=== PATIENT | female | born 1970 | race Caucasian/White ===

== ENCOUNTER 2016-08-21 17:52 | Inpatient (IN) | payer OTHER ==
[~2016-08-21] VITALS: Ht 157.5 cm; Wt 65.9 kg
[~2016-08-21 17:52] MED LIST: DEPRESSION MED; LORA-474 PO
[2016-08-21 17:53] VITALS: BP 174/83; PULSE 126; RESP 24; RESP 25; TEMP 101.1; O2SAT 99
[2016-08-21 20:45] VITALS: RESP 16; O2SAT 98
[2016-08-21] MEDS ORDERED: NORC5TAB PO (20:48)
[2016-08-21] MEDS ORDERED: BACT400T PO (20:48)
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
[2016-08-21 20:58] VITALS: BP 130/85; PULSE 110; RESP 16; O2SAT 98
[2016-08-21 21:12] LABS: AUTOMATED NEUTROPHIL # 6.7 TH/MM3 (1.8-7.7); BASOPHIL % 0.2 % (0.0-2.0); EOSINOPHIL # 0.1 TH/MM3 (0-0.4); EOSINOPHIL % 1.5 % (0.0-4.0); HEMATOCRIT 35.1 % (35.0-46.0); HEMO FLAGS DIFF FINAL; LYMPH % 14.9 % (9.0-44.0); LYMPHOCYTE # 1.3 TH/MM3 (1.0-4.8); MEAN CELL VOLUME 90.6 FL (80.0-100.0); MEAN CORPUSCULAR HGB CONC 34.2 % (32.0-36.0); MONO % 8.5 % (0.0-8.0); NEUT % 74.9 % (16.0-70.0); PLATELET COUNT 204 TH/MM3 (150-450); RED BLOOD COUNT 3.88 MIL/MM3 (4.00-5.30); RED CELL DISTRIBUTION WIDTH 13.4 % (11.6-17.2); WHITE BLOOD COUNT 8.9 TH/MM3 (4.0-11.0)
[2016-08-21] MEDS ORDERED: VANCOMYCIN INJ 1,000 MG in SODIUM CHLOR 0.9% 250 ML INJ 250 ML IV ONE (21:15)
[2016-08-21] MEDS ORDERED: ONDANSETRON HCL 4 MG/2 ML VIAL IV ONE ×2 (21:15→23:00)
[2016-08-21] MEDS ORDERED: PIPERACIL-TAZO 3.375 GM PREMIX 50 ML IV ONE (21:15)
[2016-08-21] MEDS ORDERED: SODIUM CHLOR 0.9% 1000 ML INJ 1,000 ML IV ONE ×2 (21:15→22:15)
--- NOTE | 2016-08-21 21:18 | RADRPT ---
EXAM DATE/TIME: 08/21/2016 21:00 [facility] COMPARISON: No previous studies available for comparison. INDICATIONS : Fever. MEDICAL HISTORY : None. SURGICAL HISTORY : None. ENCOUNTER: Initial ACUITY: 1 day PAIN SCORE: 7/10 LOCATION: Bilateral chest FINDINGS: There is a surgical drain overlying the left axillary region. Lungs are focally clear. No pleural eff usion is noted. Cardiac contours are satisfactory. CONCLUSION: No acute disease. Lobo Brown MD on August 21, 2016 at 21:15 Board Certified Radiologist. This report was verified electronically.
[2016-08-21 21:25] LABS: APTT (PATIENT) 25.6 SEC (24.3-30.1); INTERNATIONAL NORMALIZED RATIO 0.9 RATIO; PROTHROMBIN TIME - PATIENT 9.8 SEC (9.8-11.6)
[2016-08-21 21:43] LABS: ANION GAP 6 MEQ/L (5-15); AST (GOT) 24 U/L (15-37); BICARBONATE 28.8 MEQ/L (21.0-32.0); BLOOD UREA NITROGEN 9 MG/DL (7-18); CHLORIDE 103 MEQ/L (98-107); GLOMERULAR FILTRATION RATE 80 ML/MIN (>89); MAGNESIUM 2.2 MG/DL (1.5-2.5); POTASSIUM 3.9 MEQ/L (3.5-5.1); SODIUM (NA) 138 MEQ/L (136-145)
[2016-08-21 21:46] LABS: ALKALINE PHOSPHATASE 92 U/L (45-117); ALT (GPT) 40 U/L (10-53); TOTAL BILIRUBIN ADULT 0.2 MG/DL (0.2-1.0)
[2016-08-21 22:08] LABS: BLOOD, URINE NEG (NEG); GLUCOSE,URINE NEG (NEG); KETONE, URINE NEG (NEG); NITRITE,URINE NEG (NEG); SQUAMOUS EPITHELIAL CELL URINE 1 /hpf (0-5); URINE COLOR LIGHT-YELLOW (YELLW/STRAW)
[2016-08-21 22:10] LABS: COMMENT (UR) CULT NOT INDICATED; CULTURE IF INDICATED CULT NOT INDICATED
[2016-08-21] MEDS ORDERED: HYDROmorphone HCL PF 1 MG/ML VIAL IV PUSH ONE (23:00)
[2016-08-21] MEDS ORDERED: SODIUM CHLORIDE 0.9% FLUSH 10 ML FLUSH IV FLUSH PRN (23:15)
[2016-08-21] MEDS ORDERED: NALOXONE HCL 0.4 MG/ML AMP IV PRN (23:15)
[2016-08-21] MEDS ORDERED: Vancomycin Consult Pharmacy 1 EA OTHER SCH (23:30)
--- NOTE | 2016-08-21 23:34 | RADRPT ---
EXAM DATE/TIME: 08/21/2016 23:06 [facility] COMPARISON: No previous studies available for comparison. INDICATIONS : Left arm pain s/p lymphadenectomy. MEDICAL HISTORY : Renal calculi. . Depression. Anxiety. Arthritis. SURGICAL HISTORY : Tubal ligation. Cholecystectomy. Nephrolithotomy. Lithotripsy. Left adnexa lymphadenectomy. ENCOUNTER: Initial ACUITY: 4 - 6 days PAIN SCORE: 10/10 LOCATION: Left arm. FINDINGS: There is spontaneous flow documented in the brachial, basilic, cephalic, axillary, and subclavian vei ns. The vessels are compressible and augmentation response is documented. No filling defects are se en. The flow is phasic with respiration. Direction of flow in the jugular vein is caudal. CONCLUSION: Normal examination. Andre Lopez Jr., MD on August 21, 2016 at 23:31 Board Certified Radiologist. This report was verified electronically.
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
[2016-08-22] MEDS ORDERED: VANCOMYCIN 500 MG/NS 100 ML IV ONE ×2 (00:15)
[2016-08-22 00:45] VITALS: BP 135/76; PULSE 108; RESP 17; TEMP 99.2; O2SAT 100
[2016-08-22] MEDS: PIPERACIL-TAZO 4.5 GM PREMIX 100 ML IV SCH ×4 (04:30→22:18)
[2016-08-22] MEDS: LORazepam 1 MG TAB PO PRN ×2 (04:34→13:17)
[2016-08-22] MEDS: ACETAMINOPHEN/HYDROcodone 325 MG/5 MG TAB PO PRN ×3 (04:35→12:49)
[2016-08-22 05:16] VITALS: BP 121/73; PULSE 102; RESP 16; TEMP 99.2; O2SAT 94
[2016-08-22 08:23] LABS: AUTOMATED NEUTROPHIL # 5.6 TH/MM3 (1.8-7.7); BASOPHIL % 0.1 % (0.0-2.0); EOSINOPHIL # 0.1 TH/MM3 (0-0.4); HEMATOCRIT 37.8 % (35.0-46.0); HEMO FLAGS DIFF FINAL; LYMPHOCYTE # 1.1 TH/MM3 (1.0-4.8); MEAN CELL VOLUME 92.5 FL (80.0-100.0); MEAN CORPUSCULAR HEMOGLOBIN 30.5 PG (27.0-34.0); MONO % 7.9 % (0.0-8.0); PLATELET COUNT 183 TH/MM3 (150-450); RED BLOOD COUNT 4.09 MIL/MM3 (4.00-5.30); RED CELL DISTRIBUTION WIDTH 13.7 % (11.6-17.2); WHITE BLOOD COUNT 7.5 TH/MM3 (4.0-11.0)
[2016-08-22 08:38] LABS: BICARBONATE 26.2 MEQ/L (21.0-32.0); POTASSIUM 3.8 MEQ/L (3.5-5.1)
[2016-08-22 09:02] VITALS: BP 127/74; PULSE 133; RESP 20; TEMP 102.2; O2SAT 95
[2016-08-22] MEDS: VANCOMYCIN INJ 1,250 MG in SODIUM CHLOR 0.9% 250 ML INJ 250 ML IV SCH ×2 (09:16→20:46)
[2016-08-22] MEDS: SODIUM CHLORIDE 0.9% FLUSH 10 ML FLUSH IV FLUSH SCH ×2 (09:16→20:51)
[2016-08-22 12:39] VITALS: BP 135/74; PULSE 111; RESP 19; TEMP 99.9; O2SAT 95
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
[2016-08-22] MEDS: MORPHINE SULFATE 4 MG/ML INJ IV PUSH PRN ×2 (13:16→18:34)
[2016-08-22] MEDS ORDERED: DIATRIZOATE MEGLUM/DIATRIZOATE SOD 9 ML CUP PO ONE (13:45)
--- NOTE | 2016-08-22 16:34 | RADRPT ---
EXAM DATE/TIME: 08/22/2016 15:48 [facility] COMPARISON: CT ABDOMEN & PELVIS W/O CONTRAST, November 04, 2015, 3:10. INDICATIONS : Right upper quadrant pain ORAL CONTRAST: No oral contrast ingested. RADIATION DOSE: 9.02 CTDIvol (mGy) MEDICAL HISTORY : None SURGICAL HISTORY : Cholecystectomy. Tubal ligation. Lymph node removal. Percutaneous nephro lithotomy. Lithotripsy. ENCOUNTER: Initial ACUITY: 1 day PAIN SCALE: 10/10 LOCATION: Right upper quadrant TECHNIQUE: Volumetric scanning of the abdomen and pelvis was performed. Using automated exposure control and adjustment of the mA and/or kV according to patient size, radiation dose was kept as low as reasonably achievable to obtain optimal diagnostic quality images. FINDINGS: Patchy air-space disease is seen in the lung base on the right, progressed in the inter brittany. There is marked fatty replacement to the liver. Spleen, pancreas, and adrenals are unremarkable. The re are renal stones identified in the left kidney without obstruction. The right kidney is unremarka ble. The gallbladder is surgically absent. There is no intrahepatic biliary ductal dilatation. Region of the cecum and terminal ileum are unremarkable. Pelvic contents are otherwise unremarkable. CONCLUSION: 1. Patchy air-space disease in the right lung base. 2. Marked fatty replacement to the liver. 3. Negative for free air or obstruction. 4. Nonobstructing left renal stones. Douglas Cook MD FACR on August 22, 2016 at 16:06 Board Certified Radiologist. This report was verified electronically.
[2016-08-22] MEDS: ACETAMINOPHEN/HYDROcodone 325 MG/10 MG TAB PO PRN ×2 (16:46→20:51)
--- NOTE | 2016-08-22 16:58 | RADRPT ---
EXAM DATE/TIME: 08/22/2016 16:01 [facility] COMPARISON: No previous studies available for comparison. INDICATIONS : Left axilla undrained abscess. MEDICAL HISTORY : Renal calculi. Arthritis. UTI. Anxiety. Depression. Left arm numbness post axilla surgery. SURGICAL HISTORY : Cholecystectomy. Tubal ligation. Axilla surgery. Left percutaneous nephrolithotomy. Lithotripsy x4. Laser 4-5x. Nephrectomy. Lymph node removal. ENCOUNTER: Initial ACUITY: 4-6 days PAIN SCORE: 10/10 LOCATION: Left arm. AREA EVALUATED: Left axilla. FINDINGS: MASSES: None. FLUID COLLECTIONS: None. OTHER: The left axillary tissues appear edematous and indurated. CONCLUSION: Soft tissue swelling without evidence of discrete abscess. Phuc Duggan MD on August 22, 2016 at 16:55 Board Certified Radiologist. This report was verified electronically.
[2016-08-22 17:09] VITALS: BP 133/81; PULSE 115; RESP 20; TEMP 99.9; O2SAT 94
[2016-08-22 20:00] VITALS: BP 101/70; PULSE 94; RESP 20; TEMP 97.3; O2SAT 94
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
[2016-08-23] VITALS (10 sets, daily range): BP systolic 100–171; BP diastolic 58–91; PULSE 83–140; RESP 16–28; TEMP 97.9–100.3; O2SAT 90–99
[2016-08-23] MEDS: MORPHINE SULFATE 4 MG/ML INJ IV PUSH PRN ×3 (03:27→17:02)
[2016-08-23] MEDS: PIPERACIL-TAZO 4.5 GM PREMIX 100 ML IV SCH ×4 (03:32→21:52)
[2016-08-23] MEDS: LORazepam 1 MG TAB PO PRN ×2 (03:35→20:37)
[2016-08-23] MEDS ORDERED: ACETAMINOPHEN 325 MG TAB PO PRN (04:15)
[2016-08-23] MEDS ORDERED: LORazepam 2 MG/ML VIAL IV PUSH ONE ×2 (04:30→05:30)
[2016-08-23] MEDS ORDERED: IOHEXOL 350 MG/ML 10 ML VIAL (for RAD DIAG) IV ONE (06:15)
--- NOTE | 2016-08-23 06:26 | RADRPT ---
EXAM DATE/TIME: 08/23/2016 06:00 [facility] COMPARISON: No previous studies available for comparison. INDICATIONS : Shortness of breath. Evaluate for embolism. IV CONTRAST: 73 cc Omnipaque 350 (iohexol) IV RADIATION DOSE: 23.05 CTDIvol (mGy) MEDICAL HISTORY : None SURGICAL HISTORY : None. ENCOUNTER: Initial ACUITY: 1 day PAIN SCALE: 0/10 LOCATION: Bilateral chest TECHNIQUE: Volumetric scanning of the chest was performed using a pulmonary embolism protocol MIP images were re constructed. Using automated exposure control and adjustment of the mA and/or kV according to patien t size, radiation dose was kept as low as reasonably achievable to obtain optimal diagnostic quality images. FINDINGS: PULMONARY ARTERIES: No filling defects are seen in the pulmonary arteries through the segmental level. LUNGS: There is patchy alveolar infiltrate seen throughout the entire right lung most concentrated within th e right lower lobe. Many of these are groundglass in nature. Left lung is clear with exception of min imal atelectasis within the medial left base. PLEURAE: There is no pleural thickening or pleural effusion. MEDIASTINUM: There is good visualization of the great vessels of the middle mediastinum. No evidence of mediastin al or hilar adenopathy/mass. MUSCULOSKELETAL: Within normal limits for patient age. MISCELLANEOUS: The visualized upper abdominal organs demonstrate no acute abnormality. Hepatic steatosis. CONCLUSION: 1. Patchy diffuse infiltrate involving the right lung likely infectious in etiology. 2. No pulmonary embolus. Andre Lopez Jr., MD on August 23, 2016 at 6:21 Board Certified Radiologist. This report was verified electronically.
[2016-08-23] MEDS: ACETAMINOPHEN/HYDROcodone 325 MG/10 MG TAB PO PRN ×3 (08:03→20:30)
[2016-08-23] MEDS ORDERED: PHARMACY ORDERED LAB ONE (08:45)
[2016-08-23] MEDS: SODIUM CHLORIDE 0.9% FLUSH 10 ML FLUSH IV FLUSH SCH ×2 (09:22→20:21)
[2016-08-23] MEDS ORDERED: INFLUENZA VIRUS VACCINE (QUADRIVALENT) 0.5 ML SYR IM ONE (10:00)
--- NOTE | 2016-08-23 10:27 | HHI.PR ---
Subjective Subjective Notes Reports overnight she became short of breath LEFT axillary painful but tolerable c/o cough Objective Vitals/I&O Vital Signs Date Time Temp Pulse Resp B/P Pulse Ox O2 Delivery O2 Flow Rate FiO2 08/23/16 08:36 98.3 122 20 135/74 95 08/23/16 04:00 15.00 08/23/16 04:00 Nasal Cannula Labs Laboratory Tests Test 08/23/16 06:47 Creatinine 0.88 Estimat Glomerular Filtration 69 Rate Date/Time Procedure Status Source Growth 08/21/16 20:45 Gram Stain - Final Complete Wound Arm 08/21/16 20:45 Wound Culture - Final Complete S. Aureus Mrsa 08/21/16 20:45 Aerobic Blood Culture - Preliminary Resulted Blood Peripheral NO GROWTH IN 1 DAY 08/21/16 20:45 Anaerobic Blood Culture - Preliminary Resulted Blood Peripheral NO GROWTH IN 1 DAY Cardiovascular: Regular Lungs: Clear Abdomen: Non-distended, Other (epigastric pain with palpation ) Narrative Exam LEFT axilla-- sutures in place--- minimal drainage; JACQUI in place with SS drainage A/P Assessment and Plan 45 year old female with recent diagnosis of hidradenitis suppurativa s/p excision of LEFT axillary with drain placement at outside hospital -Continue to monitor JACQUI drain -Check CMP today -CTA done overnight due to SOB---negative for PE -IS -OOB and mobilize -Regular diet -Continue antibiotics Attending Statement patient seen at bedside c/o pain at her axilla no fevers jacqui with output pt appears to improving Attestation The exam, history, and the medical decision-making described in the above note were completed with the assistance of the mid-level provider. I reviewed and agree with the findings presented. I attest that I had a [id number] encounter with the patient on the same day, and personally performed and documented my assessment and findings in the medical record. Shyanne Bullard August 23, 2016 10:27 Familia Quiñones MD September 03, 2016 22:02
[2016-08-23] MEDS: QUEtiapine FUMARATE 25 MG TAB PO SCH ×2 (11:14→20:21)
[2016-08-23 12:19] LABS: BASOPHIL % 0.1 % (0.0-2.0); EOSINOPHIL # 0.1 TH/MM3 (0-0.4); EOSINOPHIL % 1.2 % (0.0-4.0); HEMATOCRIT 32.8 % (35.0-46.0); HEMO FLAGS DIFF FINAL; LYMPHOCYTE # 0.9 TH/MM3 (1.0-4.8); MEAN CELL VOLUME 92.6 FL (80.0-100.0); MEAN CORPUSCULAR HEMOGLOBIN 30.2 PG (27.0-34.0); MEAN CORPUSCULAR HGB CONC 32.6 % (32.0-36.0); MONO % 10.5 % (0.0-8.0); NEUT % 76.2 % (16.0-70.0); PLATELET COUNT 180 TH/MM3 (150-450); RED BLOOD COUNT 3.54 MIL/MM3 (4.00-5.30); RED CELL DISTRIBUTION WIDTH 13.6 % (11.6-17.2); WHITE BLOOD COUNT 7.9 TH/MM3 (4.0-11.0)
[2016-08-23 12:41] LABS: ALT (GPT) 32 U/L (10-53); ANION GAP 7 MEQ/L (5-15); AST (GOT) 27 U/L (15-37); BICARBONATE 29.1 MEQ/L (21.0-32.0); BLOOD UREA NITROGEN 8 MG/DL (7-18); CHLORIDE 104 MEQ/L (98-107); GLOMERULAR FILTRATION RATE 93 ML/MIN (>89); POTASSIUM 4.1 MEQ/L (3.5-5.1); SODIUM (NA) 140 MEQ/L (136-145)
[2016-08-23 12:43] LABS: ALKALINE PHOSPHATASE 76 U/L (45-117); TOTAL BILIRUBIN ADULT 0.3 MG/DL (0.2-1.0)
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
[2016-08-23 14:21] LABS: HDL CHOLESTEROL 48.6 MG/DL (40.0-60.0)
[2016-08-23] MEDS: PANTOPRAZOLE SOD 40 MG DELAYED RELEASE TAB PO SCH (14:45)
[2016-08-23] MEDS: PETROLATUM 49%/ZINC OXIDE 15% 4 OUNCE TUBE TOPICAL SCH (14:46)
[2016-08-23] MEDS ORDERED: CLINDAMYCIN INJ 600 MG in SODIUM CHLORIDE 0.9% INJ 100 ML IV SCH (15:00)
--- NOTE | 2016-08-23 15:39 | EKG ---
Date Performed: 08/23/2016 Time Performed: 04:19:28 PTAGE: 45 years EKG: Sinus tachycardia Normal ECG except for rate PREVIOUS TRACING : 01/26/2008 15.57 Compared to prior tracing no significant change DOCTOR: Jesus Morillo Interpretating Date/Time 08/23/2016 15:40:01
[2016-08-23] MEDS: DOXYCYCLINE INJ 100 MG in SODIUM CHLORIDE 0.9% INJ 100 ML IV SCH (15:55)
[2016-08-23] MEDS: LACTOBACILLUS ACIDOPHILUS TAB PO SCH (17:02)
[2016-08-24] VITALS (7 sets, daily range): BP systolic 99–128; BP diastolic 61–80; PULSE 69–130; RESP 18; TEMP 97.2–99.5; O2SAT 92–96
[2016-08-24] MEDS: DOXYCYCLINE INJ 100 MG in SODIUM CHLORIDE 0.9% INJ 100 ML IV SCH ×2 (01:58→15:14)
[2016-08-24] MEDS: ACETAMINOPHEN/HYDROcodone 325 MG/10 MG TAB PO PRN ×4 (01:58→18:02)
[2016-08-24] MEDS: PIPERACIL-TAZO 4.5 GM PREMIX 100 ML IV SCH ×4 (03:11→20:15)
[2016-08-24 07:52] LABS: AUTOMATED NEUTROPHIL # 2.3 TH/MM3 (1.8-7.7); BASOPHIL % 0.3 % (0.0-2.0); EOSINOPHIL # 0.4 TH/MM3 (0-0.4); HEMATOCRIT 32.9 % (35.0-46.0); HEMO FLAGS DIFF FINAL; LYMPH % 29.1 % (9.0-44.0); LYMPHOCYTE # 1.3 TH/MM3 (1.0-4.8); MEAN CELL VOLUME 91.6 FL (80.0-100.0); MEAN CORPUSCULAR HGB CONC 33.8 % (32.0-36.0); NEUT % 49.6 % (16.0-70.0); PLATELET COUNT 189 TH/MM3 (150-450); RED BLOOD COUNT 3.59 MIL/MM3 (4.00-5.30); RED CELL DISTRIBUTION WIDTH 13.4 % (11.6-17.2); WHITE BLOOD COUNT 4.5 TH/MM3 (4.0-11.0)
[2016-08-24] MEDS: PANTOPRAZOLE SOD 40 MG DELAYED RELEASE TAB PO SCH (08:41)
[2016-08-24] MEDS: QUEtiapine FUMARATE 25 MG TAB PO SCH ×2 (08:41→20:15)
[2016-08-24] MEDS: LACTOBACILLUS ACIDOPHILUS TAB PO SCH ×3 (08:41→18:02)
[2016-08-24] MEDS: PETROLATUM 49%/ZINC OXIDE 15% 4 OUNCE TUBE TOPICAL SCH (08:42)
[2016-08-24] MEDS: SODIUM CHLORIDE 0.9% FLUSH 10 ML FLUSH IV FLUSH SCH ×2 (08:42→20:15)
[2016-08-24] MEDS: MORPHINE SULFATE 4 MG/ML INJ IV PUSH PRN ×2 (09:40→20:14)
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
[2016-08-24] MEDS: LORazepam 1 MG TAB PO PRN (12:04)
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
--- NOTE | 2016-08-24 17:52 | HHI.PR ---
Subjective Subjective Notes Resting in bed CLARENCE Contreras at bedside C/o LEFT axillary pain Objective Vitals/I&O Vital Signs Date Time Temp Pulse Resp B/P Pulse Ox O2 Delivery O2 Flow Rate FiO2 08/24/16 16:00 97.9 130 18 128/71 92 08/23/16 12:33 21 08/23/16 04:00 15.00 08/23/16 04:00 Nasal Cannula Labs Laboratory Tests Test 08/24/16 07:29 White Blood Count 4.5 Red Blood Count 3.59 Hemoglobin 11.1 Hematocrit 32.9 Mean Corpuscular Volume 91.6 Mean Corpuscular Hemoglobin 31.0 Mean Corpuscular Hemoglobin 33.8 Concent Red Cell Distribution Width 13.4 Platelet Count 189 Mean Platelet Volume 9.9 Neutrophils (%) (Auto) 49.6 Lymphocytes (%) (Auto) 29.1 Monocytes (%) (Auto) 13.0 Eosinophils (%) (Auto) 8.0 Basophils (%) (Auto) 0.3 Neutrophils # (Auto) 2.3 Lymphocytes # (Auto) 1.3 Monocytes # (Auto) 0.6 Eosinophils # (Auto) 0.4 Basophils # (Auto) 0.0 CBC Comment DIFF FINAL Differential Comment Date/Time Procedure Status Source Growth 08/24/16 13:55 Gram Stain Received Sputum Expectorated Sputum Pending 08/24/16 13:55 Sputum Culture Received Sputum Expectorated Sputum Pending 08/21/16 20:45 Gram Stain - Final Complete Wound Arm 08/21/16 20:45 Wound Culture - Final Complete S. Aureus Mrsa 08/21/16 20:45 Aerobic Blood Culture - Preliminary Resulted Blood Peripheral NO GROWTH IN 3 DAYS 08/21/16 20:45 Anaerobic Blood Culture - Preliminary Resulted Blood Peripheral NO GROWTH IN 3 DAYS Cardiovascular: Regular Lungs: Clear Abdomen: Non-distended, Non-tender Narrative Exam LEFT axilla-- sutures in place--- minimal drainage; ANIRUDH in place with SS drainage A/P Assessment and Plan 45 year old female with recent diagnosis of hidradenitis suppurativa s/p excision of LEFT axillary with drain placement at outside hospital -Continue to monitor ANIRUDH drain -Okay to shower -IS -OOB and mobilize -Regular diet -Continue antibiotics Attending Statement patient seen at bedside still with pain to left axilla appears improving will d/c drain soon follow wbc continue with abx, wound care Attestation The exam, history, and the medical decision-making described in the above note were completed with the assistance of the mid-level provider. I reviewed and agree with the findings presented. I attest that I had a [id number] encounter with the patient on the same day, and personally performed and documented my assessment and findings in the medical record. Shyanne Bullard August 24, 2016 17:52 Familia Quiñones MD September 03, 2016 22:22
[2016-08-24] MEDS: SERTRALINE HCL 100 MG TAB PO SCH (18:02)
[2016-08-24] MEDS: clonazePAM 0.5 MG TAB PO SCH (20:15)
[2016-08-25] VITALS (7 sets, daily range): BP systolic 108–161; BP diastolic 63–95; PULSE 78–95; RESP 18–20; TEMP 97–98.9; O2SAT 93–96
[2016-08-25] MEDS: DOXYCYCLINE INJ 100 MG in SODIUM CHLORIDE 0.9% INJ 100 ML IV SCH ×2 (02:03→14:51)
[2016-08-25] MEDS: PIPERACIL-TAZO 4.5 GM PREMIX 100 ML IV SCH ×4 (03:14→23:34)
[2016-08-25] MEDS: ACETAMINOPHEN/HYDROcodone 325 MG/10 MG TAB PO PRN ×4 (03:16→21:10)
[2016-08-25] MEDS: LACTOBACILLUS ACIDOPHILUS TAB PO SCH ×3 (08:17→18:20)
[2016-08-25] MEDS: clonazePAM 0.5 MG TAB PO SCH ×2 (08:17→21:09)
[2016-08-25] MEDS: SODIUM CHLORIDE 0.9% FLUSH 10 ML FLUSH IV FLUSH SCH ×2 (08:18→21:09)
[2016-08-25] MEDS: QUEtiapine FUMARATE 25 MG TAB PO SCH ×2 (08:18→21:10)
[2016-08-25] MEDS: SERTRALINE HCL 100 MG TAB PO SCH (08:18)
[2016-08-25] MEDS: PANTOPRAZOLE SOD 40 MG DELAYED RELEASE TAB PO SCH (08:18)
[2016-08-25] MEDS: PETROLATUM 49%/ZINC OXIDE 15% 4 OUNCE TUBE TOPICAL SCH (08:23)
[2016-08-25 08:54] LABS: HEMATOCRIT 35.8 % (35.0-46.0); MEAN CELL VOLUME 90.9 FL (80.0-100.0); MEAN CORPUSCULAR HEMOGLOBIN 30.1 PG (27.0-34.0); MEAN CORPUSCULAR HGB CONC 33.1 % (32.0-36.0); PLATELET COUNT 212 TH/MM3 (150-450); RED BLOOD COUNT 3.94 MIL/MM3 (4.00-5.30); RED CELL DISTRIBUTION WIDTH 13.3 % (11.6-17.2); REVIEW FLAG FINAL; WHITE BLOOD COUNT 5.1 TH/MM3 (4.0-11.0)
[2016-08-25 09:15] LABS: BICARBONATE 26.9 MEQ/L (21.0-32.0); MAGNESIUM 2.1 MG/DL (1.5-2.5); POTASSIUM 3.7 MEQ/L (3.5-5.1)
[2016-08-25] MEDS ORDERED: RESP: ALBUTEROL 2.5 MG/IPRATROPIUM 0.5 MG NEB (PRN) NEB (09:30)
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
[2016-08-25] MEDS: guaiFENesin E.R. 600 MG TAB PO SCH ×2 (11:38→21:10)
[2016-08-25] MEDS: RESP: ALBUTEROL 2.5 MG/IPRATROPIUM 0.5 MG NEB (SCH) NEB ×2 (15:17→19:30)
[2016-08-25] MEDS: LORazepam 1 MG TAB PO PRN (16:39)
[2016-08-25] MEDS: DOCUSATE SODIUM 100 MG CAP PO SCH (21:09)
[2016-08-26] VITALS (7 sets, daily range): BP systolic 121–137; BP diastolic 70–82; PULSE 77–108; RESP 18–20; TEMP 97.1–97.8; O2SAT 93–96
[2016-08-26] MEDS: LORazepam 1 MG TAB PO PRN ×2 (01:32→14:03)
[2016-08-26] MEDS: ACETAMINOPHEN/HYDROcodone 325 MG/10 MG TAB PO PRN ×4 (01:34→23:19)
[2016-08-26] MEDS: DOXYCYCLINE INJ 100 MG in SODIUM CHLORIDE 0.9% INJ 100 ML IV SCH ×2 (02:38→14:03)
[2016-08-26] MEDS: PIPERACIL-TAZO 4.5 GM PREMIX 100 ML IV SCH ×4 (03:56→20:59)
[2016-08-26] MEDS: RESP: ALBUTEROL 2.5 MG/IPRATROPIUM 0.5 MG NEB (SCH) NEB ×3 (08:25→20:31)
[2016-08-26] MEDS: QUEtiapine FUMARATE 25 MG TAB PO SCH ×2 (09:22→20:57)
[2016-08-26] MEDS: DOCUSATE SODIUM 100 MG CAP PO SCH ×2 (09:22→20:58)
[2016-08-26] MEDS: guaiFENesin E.R. 600 MG TAB PO SCH ×2 (09:23→20:58)
[2016-08-26] MEDS: SERTRALINE HCL 100 MG TAB PO SCH (09:23)
[2016-08-26] MEDS: LACTOBACILLUS ACIDOPHILUS TAB PO SCH ×3 (09:23→16:47)
[2016-08-26] MEDS: clonazePAM 0.5 MG TAB PO SCH ×2 (09:23→20:57)
[2016-08-26] MEDS: PANTOPRAZOLE SOD 40 MG DELAYED RELEASE TAB PO SCH (09:23)
[2016-08-26] MEDS: SODIUM CHLORIDE 0.9% FLUSH 10 ML FLUSH IV FLUSH SCH ×2 (09:23→20:59)
[2016-08-26] MEDS: PETROLATUM 49%/ZINC OXIDE 15% 4 OUNCE TUBE TOPICAL SCH (09:24)
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
--- NOTE | 2016-08-26 12:50 | HHI.PR ---
Subjective Subjective Notes no new c/o, feels better Objective Vitals/I&O Vital Signs Date Time Temp Pulse Resp B/P Pulse Ox O2 Delivery O2 Flow Rate FiO2 08/26/16 09:02 97.1 108 18 121/82 95 08/26/16 08:26 21 08/23/16 04:00 15.00 08/23/16 04:00 Nasal Cannula Labs Date/Time Procedure Status Source Growth 08/24/16 13:55 Gram Stain - Final Complete Sputum Expectorated Sputum 08/24/16 13:55 Sputum Culture - Final Complete Sputum Expectorated Sputum RARE GROWTH NORMAL RESPIRATORY TIKA 08/21/16 20:45 Aerobic Blood Culture - Final Complete Blood Peripheral NO GROWTH IN 5 DAYS 08/21/16 20:45 Anaerobic Blood Culture - Final Complete Blood Peripheral NO GROWTH IN 5 DAYS Abdomen: Non-distended, Non-tender Extremities: No edema, Perfused Narrative Exam left axilla with no cellulitis or necrosis, ANIRUDH with clear fluid A/P Assessment and Plan 45yo with left axillary wound infection, improving. cont ABX remove ANIRUDH Solo Stevenson MD August 26, 2016 12:50
[2016-08-26] MEDS: MORPHINE SULFATE 4 MG/ML INJ IV PUSH PRN (14:04)
[2016-08-27] VITALS: BP 153/78; PULSE 82; RESP 18; TEMP 98.7; O2SAT 93
[2016-08-27] MEDS: DOXYCYCLINE INJ 100 MG in SODIUM CHLORIDE 0.9% INJ 100 ML IV SCH ×2 (03:21→16:08)
[2016-08-27 03:33] VITALS: PULSE 89
[2016-08-27] MEDS: PIPERACIL-TAZO 4.5 GM PREMIX 100 ML IV SCH ×2 (03:55→09:54)
[2016-08-27 04:00] VITALS: BP 132/88; PULSE 77; RESP 22; TEMP 98.8; O2SAT 93
[2016-08-27] MEDS: ACETAMINOPHEN/HYDROcodone 325 MG/10 MG TAB PO PRN ×2 (06:49→16:06)
[2016-08-27] MEDS: LORazepam 1 MG TAB PO PRN (06:49)
[2016-08-27 08:00] VITALS: BP 172/92; PULSE 90; RESP 20; TEMP 97; O2SAT 96
[2016-08-27] MEDS: RESP: ALBUTEROL 2.5 MG/IPRATROPIUM 0.5 MG NEB (SCH) NEB ×3 (08:00→19:25)
[2016-08-27] MEDS: PETROLATUM 49%/ZINC OXIDE 15% 4 OUNCE TUBE TOPICAL SCH (09:00)
[2016-08-27] MEDS: LACTOBACILLUS ACIDOPHILUS TAB PO SCH ×3 (09:53→17:23)
[2016-08-27] MEDS: guaiFENesin E.R. 600 MG TAB PO SCH (09:53)
[2016-08-27] MEDS: clonazePAM 0.5 MG TAB PO SCH (09:54)
[2016-08-27] MEDS: SERTRALINE HCL 100 MG TAB PO SCH (09:54)
[2016-08-27] MEDS: QUEtiapine FUMARATE 25 MG TAB PO SCH (09:54)
[2016-08-27] MEDS: PANTOPRAZOLE SOD 40 MG DELAYED RELEASE TAB PO SCH (09:55)
[2016-08-27] MEDS: DOCUSATE SODIUM 100 MG CAP PO SCH (09:55)
[2016-08-27] MEDS: SODIUM CHLORIDE 0.9% FLUSH 10 ML FLUSH IV FLUSH SCH (09:56)
[2016-08-27] MEDS ORDERED: DOXY100C PO (11:47)
[2016-08-27] MEDS ORDERED: LORA-474 PO (11:47)
[2016-08-27] MEDS ORDERED: ZOLO100T PO (11:47)
[2016-08-27] MEDS ORDERED: NORC5TAB PO (11:47)
--- NOTE | 2016-08-27 11:47 | HHI.DCPOC ---
Discharge Care Plan Diagnosis: (1) Adjustment disorder with mixed anxiety and depressed mood (2) Postoperative wound infection Goals to Promote Your Health * To prevent worsening of your condition and complications * To maintain your health at the optimal level Directions to Meet Your Goals Take your medications as prescribed Follow your dietary instruction Follow activity as directed Keep your appointments as scheduled Take your immunizations and boosters as scheduled If your symptoms worsen call your PCP, if no PCP go to Urgent Care Center or Emergency Room Smoking is Dangerous to Your Health. Avoid second hand smoke Call the 24-hour hour crisis hotline for domestic abuse at Jose Miguel Salomon DO August 27, 2016 11:47
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
[2016-08-27 11:56] VITALS: BP 127/80; PULSE 97; RESP 20; TEMP 97.4; O2SAT 94
[2016-08-27] MEDS ORDERED: SODIUM CHLOR 0.9% 1000 ML INJ 1,000 ML IV SCH (12:45)
--- NOTE | 2016-08-27 13:45 | RADRPT ---
EXAM DATE/TIME: 08/27/2016 12:40 [facility] COMPARISON: No previous studies available for comparison. INDICATIONS : Left Humerus pain. Patient had a drain removed from axilla area. Possible infection. MEDICAL HISTORY : Arthritis. SURGICAL HISTORY : Left axilla surgery ENCOUNTER: Initial ACUITY: 4 - 6 days PAIN SCORE: 8/10 LOCATION: Left humerus FINDINGS: Two view examination of the left humerus demonstrates no evidence of fracture or dislocation. Bony m ineralization is normal. The soft tissue structures are intact. CONCLUSION: Unremarkable study. Yoan Egan MD on August 27, 2016 at 13:43 Board Certified Radiologist. This report was verified electronically.
--- NOTE | 2016-08-27 14:09 | HHI.PR ---
Subjective Subjective Notes Slept much better with ANIRUDH drain out Took a shower Pain controlled Objective Vitals/I&O Vital Signs Date Time Temp Pulse Resp B/P Pulse Ox O2 Delivery O2 Flow Rate FiO2 08/27/16 11:56 97.4 97 20 127/80 94 08/26/16 20:33 21 Labs Laboratory Tests Test 08/27/16 06:02 Creatinine 0.74 Estimat Glomerular Filtration 84 Rate Date/Time Procedure Status Source Growth 08/24/16 13:55 Gram Stain - Final Complete Sputum Expectorated Sputum 08/24/16 13:55 Sputum Culture - Final Complete Sputum Expectorated Sputum RARE GROWTH NORMAL RESPIRATORY TIKA Cardiovascular: Regular Lungs: Clear Abdomen: Non-distended, Non-tender Narrative Exam LEFT axilla-- sutures in place--- incision dry; ANIRUDH removed A/P Assessment and Plan 45 year old female with recent diagnosis of hidradenitis suppurativa s/p excision of LEFT axillary with drain placement at outside hospital -ANIRUDH removed -DC sutures prior to DC -Okay to shower -IS -OOB and mobilize -Regular diet -GS clear for DC after sutures removed -Follow up in the office in about 1 week Attending Statement Doing well patient seen at bedside dc planning Attestation The exam, history, and the medical decision-making described in the above note were completed with the assistance of the mid-level provider. I reviewed and agree with the findings presented. I attest that I had a [id number] encounter with the patient on the same day, and personally performed and documented my assessment and findings in the medical record. Shyanne Bullard August 27, 2016 14:08 Familia Quiñones MD September 09, 2016 15:17
[2016-08-27] MEDS ORDERED: IOHEXOL 350 MG/ML 10 ML VIAL (for RAD DIAG) IV ONE (15:04)
--- NOTE | 2016-08-27 15:22 | RADRPT ---
EXAM DATE/TIME: 08/27/2016 14:57 [facility] COMPARISON: HUMERUS LEFT (MIN 2VWS), August 27, 2016, 12:40. INDICATIONS : Patient complains of pain mid left humerus, one week post lymph node removal. IV CONTRAST: 95 cc Omnipaque 350 (iohexol) IV RADIATION DOSE: 13.12 CTDIvol (mGy) MEDICAL HISTORY : None SURGICAL HISTORY : Cholecystectomy. Tubal ligation.nephrectomy, ENCOUNTER: Initial ACUITY: 3 days PAIN SCALE: 4/10 LOCATION: Left arm TECHNIQUE: Volumetric scanning of the humerus was performed. Using automated exposure control and adjustment of the mA and/or kV according to patient size, radiation dose was kept as low as reasonably achievable to obtain optimal diagnostic quality images. FINDINGS: BONES: No evidence of fracture. Alignment is within normal limits. The mid humerus is unremarkable. JOINTS: No evidence of joint narrowing or effusion. SOFT TISSUES: Postsurgical changes are noted in the left axilla. Patient had a lymph node removed. CONCLUSION: Normal examination for a patient of this age. Yoan Egan MD on August 27, 2016 at 15:16 Board Certified Radiologist. This report was verified electronically.
[2016-08-27 16:00] VITALS: BP 140/89; PULSE 107; RESP 20; TEMP 96.6; O2SAT 97
[2016-08-27] MEDS ORDERED: ALBUAER3 INH (16:58)
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
[2016-08-27] MEDS ORDERED: PANT40TA3 PO (17:01)
[2016-09-11] MEDS ORDERED: PRED10PA PO (20:15)
[2016-09-11] MEDS ORDERED: PROT40TA PO (20:15)
== END 2016-08-27 19:00 | disposition home or self-care (01) | DRG 862 ==
LOC: NEPE 17:52 → NEDA 22:56 → N05A 08-22 00:37
PROVIDERS: ADMIT Hospitalist; ATTEND Hospitalist
DX: T81.4XXA Infection following a procedure, initial encounter (principal); A41.9 Sepsis, unspecified organism; J18.9 Pneumonia, unspecified organism; K76.0 Fatty (change of) liver, not elsewhere classified; Y83.8 Other surgical procedures as the cause of abnormal reaction of the patient, or of later complication, without mention of misadventure at the time of the procedure; Y92.009 Unspecified place in unspecified non-institutional (private) residence as the place of occurrence of the external cause; Z87.442 Personal history of urinary calculi; L73.2 Hidradenitis suppurativa; V89.2XXS Person injured in unspecified motor-vehicle accident, traffic, sequela; F43.23 Adjustment disorder with mixed anxiety and depressed mood; M54.9 Dorsalgia, unspecified; M19.90 Unspecified osteoarthritis, unspecified site; G89.21 Chronic pain due to trauma; R19.7 Diarrhea, unspecified; R11.2 Nausea with vomiting, unspecified; Z80.3 Family history of malignant neoplasm of breast; Z80.52 Family history of malignant neoplasm of bladder; Z82.3 Family history of stroke; Z82.49 Family history of ischemic heart disease and other diseases of the circulatory system; R20.0 Anesthesia of skin; B95.62 Methicillin resistant Staphylococcus aureus infection as the cause of diseases classified elsewhere; R10.11 Right upper quadrant pain; M79.602 Pain in left arm; Z23 Encounter for immunization
CPT/HCPCS: 71010; 71275; 73060; 73201; 74176; 76882; 80048; 80053; 80061; 80202; 81001; 82565; 83605; 83690; 83735; 84703; 85025; 85027; 85610; 85730; 86140; 86403; 87040; 87070; 87147; 87186; 87205; 90686; 93005; 93971; 94150; 94640; 94664; 96374; 96375; J1170; J2060; J2270; J2405; J2543; J3370; J7030; J7050; Q2038; Q9963; Q9967